=== PATIENT | male | born 1955 | race Caucasian/White ===

== ENCOUNTER → 2017-12-31 | Day surgery (SDC) | payer OTHER ==
[~2017-12-31] VITALS: Ht 170.2 cm; Wt 93.0 kg
[~2017-12-31] MED LIST: ACETAMINOPHEN/O1 TA2 PO; ASPIRIN CHILDRE81 MG PO; ASPIRIN81 M4 PO; ATIVAN1 M1 PO; ATORVASTATIN CA40 MG PO; ATORVASTATIN CA80 M1 PO; BUFFERIN LOW DO81 MG PO; BUTRANS1 EAC1 TOP; CIPRO500 M1 PO; LIDODERM1 EACH EXT; LIPITOR80 MG PO; LOPRESSOR 12.12.5 MG PO; MECLIZINE HCL25 M1 PO; METOPROLOL SUCC50 MG PO; METOPROLOL TART25 M1 PO; NEURONTIN800 M2 PO; OXYCONTIN20 M1 PO; OXYCONTIN30 M1 PO; PERCOCET 5-3251 EACH PO; PERCOCET 7.5-31 EACH PO; PREDNISONE10 M2 PO; TIZANIDINE HCL4 M1 PO; VALIUM10 M1 PO; VALIUM5 M2 PO
--- NOTE | 2017-12-31 16:36 | Operative Report ---
Operative/Inv Procedure Report Surgery Date: 12/31/17 Name of Procedure: TURBT Pre-Operative Diagnosis: bladder tumor Post-Operative Diagnosis: same Estimated Blood Loss: less than 50ml Surgeon/Television Equipment Operator: Meera Guillaume MD Anesthesia: laryngeal mask airway Drains: 18fr reza Specimens: bladder tumor Complications: none Condition: stable Operative Indication: bladder tumor Operative/Procedure Note Note: 62 yo male with no prior hx of voiding issues or gross hematuria other than two weeks prior. He went to the ER over the weekend due to gross hematuria that would not cease and caused issues with voiding. He denies any hx of frequency, nocturia, voiding issues or incontinence. He has no hx of kidney stones, hematuria, UTIs/prostatitis. He has no fam hx of BPH or CaP. He admits to smoking 1.5 ppd for >30yrs. On office cystoscopy, he was found to have a large left lateral wall bladder tumor. He was given the option of surigcal therapy and the risks benefits and alternatives were given to the patient and his family. All questions were answered. Consent was signed in the holding area. Patient was taken to the operating placed on the operating table in supine position. Timeout was performed. IV antibiotics were infused. Patient was placed in the dorsal lithotomy position prepped and draped in standard sterile fashion. A cystoscopy was performed and the bladder was closely inspected. The ureteral orifices were easily identified in the bladder tumor was on the left lateral wall. It was a large bladder tumor, the size of an orange. The transection was started from medial to lateral orientation. The Ellik was used to evacuate bladder tumor fragments as the case progressed. The ureteral orifice on the left side was frequently examined to ensure no injury to it. It was inferior and medial to the tumor. Once the entire tumor was resected to the muscle layer all areas of bleeding were point coagulated. This was done throughout the case as well. These bladder tumors were sent to pathology in formalin. Bladder was globally inspected at the end of the case and again no other tumors were appreciated. The ureteral orifices were intact and the patient was cleaned of the Betadine solution after an 18 [place] Reza catheter was placed. Patient tolerated procedure well. He was transferred to the recovery room stable condition. Findings: Large left lateral bladder tumor; large in size and the shape of an orange Left ureteral orifice was not involved in the tumor or resection Discharge Disposition: PACU
== END ==
LOC: STS 11-26 01:55
DX: C67.2 Malignant neoplasm of lateral wall of bladder (principal); R31.0 Gross hematuria; M54.5 Low back pain; I25.10 Atherosclerotic heart disease of native coronary artery without angina pectoris; F17.210 Nicotine dependence, cigarettes, uncomplicated; Z95.5 Presence of coronary angioplasty implant and graft
CPT/HCPCS: J0131; J0690; J2250; J3490